=== PATIENT | male | born 1960 | race African-American/Black ===

== ENCOUNTER 2021-01-05 17:02 | Inpatient (IN) | payer OTHER ==
[2021-01-05] MEDS ORDERED: SODIUM CHLORIDE 1,000 ML IV STA (18:00)
[2021-01-05] MEDS ORDERED: morphine CARPU-JECT 4 MG/1 ML DISP.SYRIN IVPUSH ONE (18:00)
[2021-01-05] MEDS ORDERED: morphine SULFATE 4 MG/ML VIAL ONE (18:02)
[2021-01-05 18:21] LABS: BASO % 0.4 % (0-2.0); EOS % 1.3 % (0-4.5); HEMATOCRIT 40.9 % (35.4-49); HEMOGLOBIN 13.5 GM/dL (11.7-16.9); LYMPH % 55.7 % (8-40); MCH 30.6 pg (25.7-33.7); MCHC 33.2 g/dl (32.0-35.9); MEAN CELL VOLUME 92.4 fl (80-96); MEAN PLT VOLUME 7.5 fl (7.5-11.1); MONO % 8.5 % (3.8-10.2); NEUT % 34.1 % (42.8-82.8); PLATELET COUNT 297 K/MM3 (134-434); RBC 4.42 M/mm3 (4.00-5.60); RDW 14.4 % (11.9-15.9); WHITE BLOOD COUNT 6.9 K/mm3 (4.0-10.0)
[2021-01-05 18:29] LABS: INR 0.9 (0.83-1.09); PROTHROMBIN TIME (PATIENT) 10.9 SEC (9.7-13.0)
[2021-01-05 18:31] LABS: ACTIVATED PTT 28.3 SECONDS (25.2-36.5)
[2021-01-05 18:42] LABS: CALCIUM 9.2 mg/dL (8.5-10.1)
[2021-01-05 18:43] LABS: BLOOD UREA NITROGEN 17.9 mg/dL (7-18)
[2021-01-05 18:48] LABS: BILIRUBIN,TOTAL 0.2 mg/dL (0.2-1); TOT PROT 7.5 g/dl (6.4-8.2)
[2021-01-05] MEDS ORDERED: HEPARIN NA (PORCINE) 5,000 UNITS/ML 1ML VIAL IVPUSH ONE ×2 (19:26→19:49)
[2021-01-05] MEDS ORDERED: HEPARIN INFUSION - 25,000 UNITS/500 ML INFUS.BAG IVPB SCH (19:30)
[2021-01-05] MEDS ORDERED: HEPARIN INFUSION - 25,000 UNITS/500 ML INFUS.BAG IVPB ONE (19:59)
[2021-01-05] MEDS ORDERED: HEPARIN NA (PORCINE) 5,000 UNITS/ML 1ML VIAL ONE (19:59)
[2021-01-05 21:33] LABS: N-TERMINAL BNP 26.6 pg/ml (5-125)
[2021-01-05] MEDS ORDERED: DEXTROSE 5%-0.45% SALINE 1,000 ML IV SCH (22:15)
[2021-01-05] MEDS ORDERED: MORPHINE SULFATE 2 MG/ML VIAL ONE (23:03)
[2021-01-05] MEDS: MORPHINE SULFATE 2 MG/ML VIAL IVPUSH PRN (23:07)
[2021-01-06] MEDS: CEFAZOLIN 2 GM/D5W 2 GM/50 ML ML IVPB SCH ×2 (02:30→19:18)
[2021-01-06 02:49] LABS: INR 0.99 (0.83-1.09)
[2021-01-06 02:52] LABS: ACTIVATED PTT 68.8 SECONDS (25.2-36.5)
[2021-01-06] MEDS ORDERED: morphine CARPU-JECT 4 MG/1 ML DISP.SYRIN IVPUSH ONE (02:59)
[2021-01-06] MEDS ORDERED: morphine SULFATE 4 MG/ML VIAL ONE (02:59)
[2021-01-06 08:21] LABS: BASO % 0.8 % (0-2.0); EOS % 1.7 % (0-4.5); HEMATOCRIT 37.9 % (35.4-49); HEMOGLOBIN 12.6 GM/dL (11.7-16.9); LYMPH % 56.3 % (8-40); MCH 30.9 pg (25.7-33.7); MCHC 33.3 g/dl (32.0-35.9); MEAN CELL VOLUME 92.7 fl (80-96); MEAN PLT VOLUME 8.4 fl (7.5-11.1); MONO % 9.4 % (3.8-10.2); NEUT % 31.8 % (42.8-82.8); PLATELET COUNT 251 K/MM3 (134-434); RBC 4.09 M/mm3 (4.00-5.60); RDW 14.3 % (11.9-15.9); WHITE BLOOD COUNT 7.2 K/mm3 (4.0-10.0)
[2021-01-06 08:42] LABS: BLOOD UREA NITROGEN 13.6 mg/dL (7-18)
[2021-01-06 08:43] LABS: ALBUMIN 3.3 g/dl (3.4-5.0)
[2021-01-06 08:46] LABS: CREATININE 0.9 mg/dL (0.55-1.3)
[2021-01-06 08:47] LABS: BILIRUBIN,TOTAL 0.3 mg/dL (0.2-1); TOT PROT 6.2 g/dl (6.4-8.2)
[2021-01-06] MEDS ORDERED: MORPHINE SULFATE 2 MG/ML VIAL ONE (08:48)
[2021-01-06] MEDS: MORPHINE SULFATE 2 MG/ML VIAL IVPUSH PRN (08:59)
[2021-01-06] MEDS ORDERED: PAPAVERINE HCL 30 MG/1 ML 10 ML VIAL NR ONE (10:45)
[2021-01-06] MEDS ORDERED: POVIDONE-IODINE OINTMENT 10% - 28.4 GM TUBE ONE (10:46)
[2021-01-06] MEDS ORDERED: LIDOCAINE HCL 1%, 10 MG/ML (20ML VIAL) ONE (10:46)
[2021-01-06] MEDS ORDERED: HEPARIN NA (PORCINE) 5,000 UNITS/ML 1ML VIAL ONE ×4 (10:46→15:51)
[2021-01-06] MEDS ORDERED: MIDAZOLAM HCL 2 MG/2 ML SINGLE DOSE VIAL ONE (12:28)
[2021-01-06] MEDS ORDERED: PROPOFOL 20 ML ONE ×4 (12:28→14:20)
[2021-01-06] MEDS ORDERED: LIDOCAINE HCL/PF 2% SDV 5ML VIAL ONE (12:28)
[2021-01-06] MEDS ORDERED: ceFAZolin SODIUM 1 GM VIAL IVPB ONE ×2 (12:30→12:42)
[2021-01-06] MEDS ORDERED: EPHEDRINE SULFATE/0.9% NACL/PF 50 MG/10 ML SYRINGE NR ONE (14:21)
[2021-01-06] MEDS ORDERED: ONDANSETRON 4 MG/2 ML VIAL IVPUSH PRN (17:10)
[2021-01-06] MEDS ORDERED: LACTATED RINGERS SOLUTION 1,000 ML IV SCH (17:15)
[2021-01-06] MEDS ORDERED: HEPARIN NA (PORCINE) 5,000 UNITS/ML 1ML VIAL IVPUSH PRN ×2 (17:17)
[2021-01-06] MEDS ORDERED: HYDROmorphone HCl 2 MG/ML VIAL IVPUSH ONE ×2 (17:32→18:15)
[2021-01-06] MEDS ORDERED: HEPARIN INFUSION - 25,000 UNITS/500 ML INFUS.BAG IVPB ONE (17:34)
[2021-01-06] MEDS ORDERED: HYDROmorphone HCl 2 MG/ML VIAL ONE (18:15)
[2021-01-06 18:43] LABS: BASO % 0.5 % (0-2.0); EOS % 0.2 % (0-4.5); HEMATOCRIT 40.3 % (35.4-49); HEMOGLOBIN 13.1 GM/dL (11.7-16.9); LYMPH % 22.6 % (8-40); MCH 30.4 pg (25.7-33.7); MCHC 32.5 g/dl (32.0-35.9); MEAN CELL VOLUME 93.7 fl (80-96); MEAN PLT VOLUME 8.3 fl (7.5-11.1); MONO % 1.9 % (3.8-10.2); NEUT % 74.8 % (42.8-82.8); PLATELET COUNT 268 K/MM3 (134-434); WHITE BLOOD COUNT 11.8 K/mm3 (4.0-10.0)
[2021-01-06 19:30] LABS: BLOOD UREA NITROGEN 10.6 mg/dL (7-18)
[2021-01-06] MEDS: HEPARIN INFUSION - 25,000 UNITS/500 ML INFUS.BAG IVPB SCH (21:16)
[2021-01-06] MEDS: PREGABALIN 75 MG CAPSULE PO SCH (22:36)
[2021-01-06] MEDS: CYCLOBENZAPRINE HCL 5 MG TABLET PO SCH (22:36)
[2021-01-07] MEDS: MORPHINE SULFATE 2 MG/ML VIAL IVPUSH PRN ×3 (01:19→14:20)
[2021-01-07] MEDS: DEXTROSE 5%-0.45% SALINE 1,000 ML IV SCH (07:16)
[2021-01-07] MEDS: CEFAZOLIN 2 GM/D5W 2 GM/50 ML ML IVPB SCH (09:17)
[2021-01-07] MEDS: PREGABALIN 75 MG CAPSULE PO SCH ×2 (09:17→21:12)
[2021-01-07] MEDS: CYCLOBENZAPRINE HCL 5 MG TABLET PO SCH ×2 (09:17→21:12)
[2021-01-07 12:17] LABS: BASO % 0.7 % (0-2.0); EOS % 0.5 % (0-4.5); HEMATOCRIT 36.5 % (35.4-49); HEMOGLOBIN 11.9 GM/dL (11.7-16.9); LYMPH % 37.8 % (8-40); MCH 30.4 pg (25.7-33.7); MCHC 32.7 g/dl (32.0-35.9); MEAN CELL VOLUME 92.8 fl (80-96); MEAN PLT VOLUME 7.8 fl (7.5-11.1); MONO % 8.7 % (3.8-10.2); NEUT % 52.3 % (42.8-82.8); PLATELET COUNT 227 K/MM3 (134-434); RBC 3.94 M/mm3 (4.00-5.60); RDW 14.5 % (11.9-15.9); WHITE BLOOD COUNT 10.5 K/mm3 (4.0-10.0)
[2021-01-07] MEDS ORDERED: oxyCODONE HCL 5 MG TABLET PO PRN (12:29)
[2021-01-07 12:36] LABS: CALCIUM 8.4 mg/dL (8.5-10.1)
[2021-01-07 12:37] LABS: ALBUMIN 3.3 g/dl (3.4-5.0); BLOOD UREA NITROGEN 9.5 mg/dL (7-18)
[2021-01-07 12:42] LABS: BILIRUBIN,TOTAL 0.4 mg/dL (0.2-1); TOT PROT 6.2 g/dl (6.4-8.2)
[2021-01-07 14:15] VITALS: BMI 23.8
[2021-01-07] MEDS ORDERED: DEXTROSE 5%-0.45% SALINE 1,000 ML IV SCH (17:47)
[2021-01-07] MEDS ORDERED: HEPARIN NA (PORCINE) 5,000 UNITS/ML 1ML VIAL IVPUSH PRN ×4 (17:47)
[2021-01-07] MEDS ORDERED: ONDANSETRON 4 MG/2 ML VIAL IVPUSH PRN (17:47)
[2021-01-07] MEDS ORDERED: MORPHINE SULFATE 2 MG/ML VIAL IVPUSH PRN (17:47)
[2021-01-07] MEDS ORDERED: DICLOFENAC EPOLAMINE TD SCH (17:47)
[2021-01-07] MEDS: HEPARIN INFUSION - 25,000 UNITS/500 ML INFUS.BAG IVPB SCH ×2 (21:11→22:10)
[2021-01-07] MEDS ORDERED: BENZOCAINE/MENTH/CETYLPYRD CL 1 EACH LOZENGE MM PRN (22:12)
[2021-01-07] MEDS ORDERED: PT OWN MED DRAWER 7, Y5N ONE (23:32)
[2021-01-07] MEDS: oxyCODONE HCL 5 MG TABLET PO PRN (23:38)
[2021-01-08] MEDS: HEPARIN INFUSION - 25,000 UNITS/500 ML INFUS.BAG IVPB SCH (04:31)
[2021-01-08] MEDS: DEXTROSE 5%-0.45% SALINE 1,000 ML IV SCH (04:31)
[2021-01-08] MEDS: DICLOFENAC EPOLAMINE TD SCH ×2 (04:31→16:57)
[2021-01-08 08:39] LABS: HEMOGLOBIN 11.1 GM/dL (11.7-16.9); MCH 31.1 pg (25.7-33.7); MCHC 33.7 g/dl (32.0-35.9); MEAN CELL VOLUME 92.1 fl (80-96); MEAN PLT VOLUME 7.4 fl (7.5-11.1); PLATELET COUNT 178 K/MM3 (134-434); RBC 3.59 M/mm3 (4.00-5.60); RDW 14.1 % (11.9-15.9); WHITE BLOOD COUNT 8.9 K/mm3 (4.0-10.0)
[2021-01-08] MEDS ORDERED: PT OWN MED DRAWER 7, Y5N ONE (08:43)
[2021-01-08] MEDS: PREGABALIN 75 MG CAPSULE PO SCH ×2 (09:21→21:00)
[2021-01-08] MEDS: CYCLOBENZAPRINE HCL 5 MG TABLET PO SCH ×2 (09:23→21:00)
[2021-01-08] MEDS: RIVAROXABAN 15 MG TABLET PO SCH ×2 (12:26→21:00)
[2021-01-09] MEDS: CYCLOBENZAPRINE HCL 5 MG TABLET PO SCH ×2 (10:10→21:53)
[2021-01-09] MEDS: PREGABALIN 75 MG CAPSULE PO SCH ×2 (10:10→21:53)
[2021-01-09] MEDS: RIVAROXABAN 15 MG TABLET PO SCH ×2 (10:10→21:56)
[2021-01-09 10:35] LABS: BASO % 0.4 % (0-2.0); EOS % 1.8 % (0-4.5); HEMATOCRIT 36.5 % (35.4-49); HEMOGLOBIN 12.3 GM/dL (11.7-16.9); LYMPH % 38.2 % (8-40); MCH 30.9 pg (25.7-33.7); MCHC 33.7 g/dl (32.0-35.9); MEAN CELL VOLUME 91.8 fl (80-96); MEAN PLT VOLUME 7.4 fl (7.5-11.1); MONO % 11.1 % (3.8-10.2); NEUT % 48.5 % (42.8-82.8); PLATELET COUNT 185 K/MM3 (134-434); RBC 3.98 M/mm3 (4.00-5.60); RDW 14.1 % (11.9-15.9); WHITE BLOOD COUNT 9.3 K/mm3 (4.0-10.0)
[2021-01-09] MEDS: oxyCODONE HCL 5 MG TABLET PO PRN ×2 (10:44→22:11)
[2021-01-09 10:47] LABS: ALBUMIN 3.4 g/dl (3.4-5.0); BLOOD UREA NITROGEN 11.7 mg/dL (7-18)
[2021-01-09 10:50] LABS: BILIRUBIN,TOTAL 0.5 mg/dL (0.2-1); CREATININE 0.9 mg/dL (0.55-1.3)
[2021-01-09 10:51] LABS: TOT PROT 6.9 g/dl (6.4-8.2)
[2021-01-09 10:54] LABS: CALCIUM 9.4 mg/dL (8.5-10.1)
[2021-01-09] MEDS: MUPIROCIN 2% TOPICAL OINTMENT 22 GM TUBE TP SCH (21:53)
[2021-01-10] MEDS ORDERED: PT OWN MED DRAWER 7, Y5N ONE (09:10)
[2021-01-10] MEDS: CYCLOBENZAPRINE HCL 5 MG TABLET PO SCH (09:13)
[2021-01-10] MEDS: PREGABALIN 75 MG CAPSULE PO SCH (09:13)
[2021-01-10] MEDS: MUPIROCIN 2% TOPICAL OINTMENT 22 GM TUBE TP SCH (09:14)
[2021-01-10] MEDS: RIVAROXABAN 15 MG TABLET PO SCH (09:14)
[2021-01-10] MEDS: oxyCODONE HCL 5 MG TABLET PO PRN (09:25)
[2021-01-10 15:32] VITALS: BP 132/81; PULSE 71; TEMP 98.1
== END 2021-01-10 17:27 | disposition home health service (06) | DRG 254 ==
LOC: JER 17:02 → JERBED 19:37 → JICU 01-06 19:30 → J8W 01-07 21:51
PROVIDERS: ADMIT Internal Medicine; ATTEND Internal Medicine
PROC: 047C0DZ Dilation of Right Common Iliac Artery with Intraluminal Device, Open Approach (ICD-10-PCS; 2021-01-06)
PROC: 3E033GC Introduction of Other Therapeutic Substance into Peripheral Vein, Percutaneous Approach (ICD-10-PCS; 2021-01-06)
PROC: 04CL0ZZ Extirpation of Matter from Left Femoral Artery, Open Approach (ICD-10-PCS; principal; 2021-01-06 13:00)
PROC: 047D0DZ Dilation of Left Common Iliac Artery with Intraluminal Device, Open Approach (ICD-10-PCS; 2021-01-06 13:00)
DX: I74.5 Embolism and thrombosis of iliac artery (principal); I73.89 Other specified peripheral vascular diseases; I70.292 Other atherosclerosis of native arteries of extremities, left leg; I99.8 Other disorder of circulatory system; I77.1 Stricture of artery; M54.5 Low back pain
CPT/HCPCS: 36415; 75635-TC; 76000-TC-FY; 80048; 80053; 80061; 83605; 83721; 83880; 84443; 84484; 85025; 85027; 85610; 85730; 86769; 86850; 86900; 86901; 88302-TC; 93005; 93010; 94760; 97116-GP; 97161-GP; 99285-25; C9803; J1644; Q9967; U0003; U0005

== ENCOUNTER 2021-07-14 12:05 | Emergency (ER) | payer OTHER ==
[2021-07-14 12:22] VITALS: TEMP 97.9; BMI 25.0
[2021-07-14 15:14] LABS: HEMATOCRIT 38.3 % (35.4-49); HEMOGLOBIN 12.7 GM/dL (11.7-16.9); MCH 31.2 pg (25.7-33.7); MCHC 33.2 g/dl (32.0-35.9); MEAN PLT VOLUME 7.1 fl (7.5-11.1); PLATELET COUNT 245 10^3/uL (134-434); RBC 4.08 M/mm3 (4.00-5.60); RDW 14.8 % (11.9-15.9)
[2021-07-14 15:28] LABS: INR 0.91 (0.83-1.09)
[2021-07-14 15:31] LABS: ACTIVATED PTT 24.3 SECONDS (25.2-36.5)
[2021-07-14 15:37] LABS: ANISOCYTOSIS 0; HELMET CELLS 0; HOWELL-JOLLY BODIES 0; MACROCYTOSIS 0; OVALOCYTE 0; PLATELET ESTIMATE NORMAL; ROULEAU 0; SICKELED CELLS 0; TARGET CELLS 0; TEAR DROP CELLS 0; TOXIC GRANULATION 0
[2021-07-14 15:41] LABS: CHLORIDE 110 mmol/L (98-107); SODIUM 144 mmol/L (136-145)
[2021-07-14 15:43] LABS: ALBUMIN 3.8 g/dl (3.4-5.0); ANION GAP 1 MMOL/L (8-16); BLOOD UREA NITROGEN 11.6 mg/dL (7-18); CALCIUM 8.9 mg/dL (8.5-10.1); CO2 32 mmol/L (21-32); GLUCOSE,RANDOM 77 mg/dL (74-106)
[2021-07-14 15:46] LABS: CREATININE 0.9 mg/dL (0.55-1.3); SGOT/AST 19 U/L (15-37); SGPT/ALT 30 U/L (13-61)
[2021-07-14 15:48] LABS: BILIRUBIN,TOTAL 0.2 mg/dL (0.2-1); TOT PROT 7.3 g/dl (6.4-8.2)
[2021-07-14 15:49] LABS: ALK PHOS 63 U/L (45-117)
[2021-07-14 19:35] VITALS: BP 138/68; PULSE 60
== END 2021-07-14 19:44 | disposition home or self-care (01) ==
LOC: JER 12:05
DX: M79.604 Pain in right leg (principal); M79.605 Pain in left leg
CPT/HCPCS: 36415; 71045-TC-FY; 75635-TC; 80053; 82550; 82553; 84484; 85025; 85610; 85730; 86850; 86900; 86901; 93005; 93010; 99283-25

== ENCOUNTER 2021-08-17 14:44 | Inpatient (IN) | payer OTHER ==
[2021-08-17 15:14] VITALS: BMI 23.7
[2021-08-17 17:11] LABS: BASO % 0.8 % (0-2.0); EOS % 0.4 % (0-4.5); HEMATOCRIT 37.8 % (35.4-49); HEMOGLOBIN 12.8 GM/dL (11.7-16.9); LYMPH % 39.6 % (8-40); MCH 31.5 pg (25.7-33.7); MCHC 33.8 g/dl (32.0-35.9); MEAN CELL VOLUME 93.3 fl (80-96); MONO % 8.5 % (3.8-10.2); NEUT % 50.7 % (42.8-82.8); PLATELET COUNT 417 10^3/uL (134-434); RBC 4.05 M/mm3 (4.00-5.60); RDW 15.1 % (11.9-15.9); WHITE BLOOD COUNT 7.4 K/mm3 (4.0-10.0)
[2021-08-17 17:31] LABS: ALBUMIN 3.8 g/dl (3.4-5.0); BLOOD UREA NITROGEN 17.5 mg/dL (7-18)
[2021-08-17 17:34] LABS: CREATININE 0.9 mg/dL (0.55-1.3)
[2021-08-17 17:36] LABS: BILIRUBIN,TOTAL 0.5 mg/dL (0.2-1); TOT PROT 7.1 g/dl (6.4-8.2)
[2021-08-17] MEDS ORDERED: ONDANSETRON 4 MG/2 ML VIAL IVPUSH ONE (18:19)
[2021-08-17] MEDS ORDERED: SODIUM CHLORIDE 1,000 ML IV STA (18:27)
[2021-08-17] MEDS ORDERED: ONDANSETRON 4 MG/2 ML VIAL ONE (18:57)
[2021-08-17] MEDS ORDERED: DEXTROSE 5%-0.45% SALINE 1,000 ML IV SCH (21:30)
[2021-08-17] MEDS ORDERED: ONDANSETRON 4 MG/2 ML VIAL IVPUSH PRN (21:30)
[2021-08-17] MEDS ORDERED: PREGABALIN 50 MG CAPSULE ONE (22:13)
[2021-08-17] MEDS ORDERED: PREGABALIN 25 MG CAPSULE ONE (22:13)
[2021-08-17] MEDS: PREGABALIN 75 MG CAPSULE PO SCH (22:19)
[2021-08-18 06:22] LABS: URINE BARBITURATES NEGATIVE (NEGATIVE)
[2021-08-18 06:23] LABS: METHADONE, UR NEGATIVE (NEGATIVE); OPIATES, URI NEGATIVE (NEGATIVE); PHENCYCLIDINE,URINE NEGATIVE (NEGATIVE)
[2021-08-18 06:53] LABS: COCAINE, UR NEGATIVE (NEGATIVE); URINE AMPHETAMINES NEGATIVE (NEGATIVE); URINE BENZODIAZEPINES NEGATIVE (NEGATIVE)
[2021-08-18 08:10] LABS: CALCIUM 8.9 mg/dL (8.5-10.1)
[2021-08-18 08:11] LABS: ALBUMIN 3.4 g/dl (3.4-5.0); BLOOD UREA NITROGEN 18.3 mg/dL (7-18)
[2021-08-18 08:12] LABS: BASO % 0.6 % (0-2.0); EOS % 1.2 % (0-4.5); HEMATOCRIT 34.9 % (35.4-49); LYMPH % 49.7 % (8-40); MCH 32.2 pg (25.7-33.7); MCHC 34.5 g/dl (32.0-35.9); MEAN CELL VOLUME 93.3 fl (80-96); MEAN PLT VOLUME 6.4 fl (7.5-11.1); MONO % 10.4 % (3.8-10.2); NEUT % 38.1 % (42.8-82.8); PLATELET COUNT 390 10^3/uL (134-434); RBC 3.74 M/mm3 (4.00-5.60); RDW 14.6 % (11.9-15.9); WHITE BLOOD COUNT 5.8 K/mm3 (4.0-10.0)
[2021-08-18 08:14] LABS: CREATININE 0.9 mg/dL (0.55-1.3)
[2021-08-18 08:15] LABS: BILIRUBIN,TOTAL 0.4 mg/dL (0.2-1); TOT PROT 6.5 g/dl (6.4-8.2)
[2021-08-18] MEDS ORDERED: PREGABALIN 25 MG CAPSULE ONE (13:06)
[2021-08-18] MEDS ORDERED: PREGABALIN 50 MG CAPSULE ONE (13:06)
[2021-08-18] MEDS: PREGABALIN 75 MG CAPSULE PO SCH (13:25)
[2021-08-18 15:00] VITALS: BP 142/87; PULSE 93; TEMP 98.2
[2021-08-18] MEDS ORDERED: RIVAROXABAN 20 MG TABLET PO SCH (18:00)
== END 2021-08-18 18:45 | disposition left against medical advice (07) | DRG 392 ==
LOC: JER 14:44 → JERBED 19:09 → OBSVTOIN 21:26
PROVIDERS: ADMIT Internal Medicine; ATTEND Internal Medicine
DX: R11.2 Nausea with vomiting, unspecified (principal); F11.20 Opioid dependence, uncomplicated; M54.50 Low back pain, unspecified; I73.9 Peripheral vascular disease, unspecified; R42 Dizziness and giddiness; E86.0 Dehydration; E78.5 Hyperlipidemia, unspecified; R77.8 Other specified abnormalities of plasma proteins; D64.9 Anemia, unspecified; M62.81 Muscle weakness (generalized); I10 Essential (primary) hypertension; R63.0 Anorexia; Z68.23 Body mass index [BMI] 23.0-23.9, adult
CPT/HCPCS: 36415; 71046-TC-FY; 80053; 80307; 82550; 82553; 84484; 85025; 93005; 93010; 93306-TC; 99285-25; C9803; G0378; U0003; U0005